=== PATIENT | female | born 1995 | race Caucasian/White ===

== ENCOUNTER 2018-06-06 03:41 | Emergency (ER) | payer OTHER ==
[2018-06-06 04:00] VITALS: BP 103/64; TEMP 98.9; O2SAT 99
[2018-06-06] MEDS ORDERED: DEXAMETHASONE INJ 10 MG/ML VIAL ONE (04:15)
[2018-06-06] MEDS ORDERED: EPINEPHrine HCL AMP 1 MG/ML AMP ONE (04:15)
[2018-06-06] MEDS ORDERED: EPINEPHrine HCL AMP 1 MG/ML AMP SUBCU ONE (04:15)
[2018-06-06] MEDS ORDERED: diphenhydrAMINE HCL 50 MG/ML VIAL ONE (04:16)
[2018-06-06] MEDS ORDERED: diphenhydrAMINE HCL 50 MG/ML VIAL IM ONE (04:16)
[2018-06-06] MEDS ORDERED: DEXAMETHASONE INJ 10 MG/ML VIAL IM ONE (04:16)
--- NOTE | 2018-06-06 04:17 | ED.PDOC ---
History of Present Illness - General Chief Complaint: Skin/Abrasion/Tear Stated Complaint: C/O hives all over causing severe itching Time Seen by Provider: 06/06/18 04:14 Source: patient, RN notes reviewed Additional Information: 23 YEAR OLD PRESENTS WITH GENERALIZED RASH X 2 DAYS HAS BEEN ON MACROBID FOR UTI STARTED ON May ( HAS NO KNOWN ALLERGY TO SULFA) BUT IN THE PAST SHE HAS HAD SIMILAR REACTION TO LAUNDRY DETERGENT SHE HAS NO HISTORY OF ASTHMA HAY FEVER OR ECZEMA - History of Present Illness Timing/Duration: 24 hours Severity: moderate Improving Factors: nothing Worsening Factors: nothing Associated Symptoms: denies symptoms Allergies/Adverse Reactions: Allergies Penicillins Allergy (Verified 06/06/18 04:00) Home Medications: Ambulatory Orders Famotidine [Pepcid Tab] 20 mg PO Q12HR #20 tab 06/06/18 Methylprednisolone [Medrol Dose David] 4 mg PO DAILY 6 Days #21 tab 06/06/18 Nitrofurantoin Monohydrate Mac [Macrobid] 100 mg PO BID 06/06/18 diphenhydrAMINE HCL [Benadryl] 25 mg PO TID #15 cap 06/06/18 Review of Systems - Review of Systems Constitutional: States: no symptoms reported EENTM: States: no symptoms reported Respiratory: States: no symptoms reported Cardiology: States: no symptoms reported Gastrointestinal/Abdominal: States: no symptoms reported Genitourinary: States: no symptoms reported Musculoskeletal: States: no symptoms reported Skin: States: see HPI Neurological: States: no symptoms reported Endocrine: States: no symptoms reported Hematologic/Lymphatic: States: no symptoms reported Past Medical History (General) - Patient Medical History Hx Seizures: No Hx Stroke: No Hx Dementia: No Hx Asthma: No Hx of COPD: No Hx Cardiac Disorders: No Hx Congestive Heart Failure: No Hx Pacemaker: No Hx Hypertension: No Hx Thyroid Disease: No Hx Diabetes: No Hx Gastroesophageal Reflux: No Hx Renal Disease: No Hx Cancer: No Hx of HIV: No Hx Hepatitis C: No Hx MRSA: No - Vaccination History Hx Tetanus, Diphtheria Vaccination: Yes Hx Influenza Vaccination: Yes - Social History Hx Tobacco Use: No Hx Alcohol Use: No Family Medical History - Family History Mother Family History: Unknown Physical Exam - Physical Exam General Appearance: Alert, Anxious Eye Exam: bilateral normal Ears, Nose, Throat: hearing grossly normal, normal ENT inspection, normal pharynx Neck: full range of motion, supple Respiratory: chest non-tender, lungs clear, normal breath sounds, no respiratory distress Cardiovascular/Chest: normal peripheral pulses, regular rate, rhythm, no edema, no gallop, no JVD, no murmur Gastrointestinal/Abdominal: normal bowel sounds, non tender, soft, no organomegaly, no pulsatile mass Skin Exam: normal color Departure - Departure Clinical Impression: Urticaria, Allergic dermatitis Time of Disposition: 04:19 Disposition: Discharge to Home or Self Care Condition: Good Departure Forms: ED Discharge - Pt. Copy, Patient Portal Self Enrollment Activity: as per physical therapy Prescriptions: Famotidine [Pepcid Tab] 20 mg PO Q12HR #20 tab diphenhydrAMINE HCL [Benadryl] 25 mg PO TID #15 cap Methylprednisolone [Medrol Dose David] 4 mg PO DAILY 6 Days #21 tab Home Medications: Ambulatory Orders Famotidine [Pepcid Tab] 20 mg PO Q12HR #20 tab 06/06/18 Methylprednisolone [Medrol Dose David] 4 mg PO DAILY 6 Days #21 tab 06/06/18 Nitrofurantoin Monohydrate Mac [Macrobid] 100 mg PO BID 06/06/18 diphenhydrAMINE HCL [Benadryl] 25 mg PO TID #15 cap 06/06/18
== END 2018-06-06 04:40 | disposition home or self-care (01) ==
LOC: ER 03:41
DX: L50.0 Allergic urticaria (principal); Z88.0 Allergy status to penicillin
CPT/HCPCS: J1100; J1200